=== PATIENT | female | born 1965 | race African-American/Black ===

== ENCOUNTER 2017-05-27 18:56 | Emergency (ER) | payer MEDICARE, MEDICAID ==
[~2017-05-27] VITALS: Ht 170.2 cm; Wt 86.0 kg
[~2017-05-27 18:56] MED LIST: ASPI-1160; ATEN-42; CINA60; INSULIN; NPH; OMEPRAZOLE DR; REN800; [UNRECOGNIZED DRUG - OTHER]; [UNRECOGNIZED DRUG - OTHER]
[2017-05-27 19:38] LABS: BASOPHILS % 0.8 % (0.0-2.0); EOSINOPHILS % 1.4 % (0.0-5.0); HEMATOCRIT. 33.5 % (36.0-48.0); HEMOGLOBIN. 11.1 g/dL (12.0-16.0); LYMPHOCYTES % 8.2 % (20.0-50.0); MEAN CORPUSCULAR HEMOGLOBIN 27.6 pg (28.0-32.0); MEAN CORPUSCULAR VOLUME 83.3 fL (81.0-99.0); MEAN PLATELET VOLUME 9.3 fl (7.4-10.4); MONOCYTES % 8.8 % (2.0-8.0); NEUTROPHILS % 80.8 % (40.0-76.0); PLATELET 226 x1000/uL (130-400); RED BLOOD CELL COUNT 4.02 mill/uL (4.2-5.4); RED CELL DISTRIBUTION WIDTH 15.8 % (11.6-14.6)
[2017-05-27 19:40] LABS: CHLORIDE 97 mEq/L (98-107)
[2017-05-27 19:41] LABS: INR 1.1
[2017-05-27 19:48] LABS: CARBON DIOXIDE 32 mEq/L (21-32)
[2017-05-27 20:01] LABS: TROPONIN I < 0.02 ng/mL (0.00-0.04)
[2017-05-27 20:21] LABS: CLARITY URINE CLOUDY (CLEAR); COLOR URINE YELLOW (YELLOW); GLUCOSE URINE TRACE (NEGATIVE); KETONES URINE NEGATIVE (NEGATIVE); LEUKOCYTE ESTERASE URINE 1+ (NEGATIVE); NITRITE URINE NEGATIVE (NEGATIVE); OCCULT BLOOD URINE 3+ (NEGATIVE); PH URINE >=9.0 (4.5-8.0); PROTEIN URINE 3+ (NEGATIVE); SPECIFIC GRAVITY URINE 1.013 (1.005-1.030); UROBILINOGEN URINE 0.2 E.U./dL (0.2-1.0)
[2017-05-27] MEDS ORDERED: SODIUM POLYSTYRENE SULFONATE 15 G/60 ML BOT PO NR (22:15)
[2017-05-27 23:15] VITALS: BP 174/89
== END 2017-05-28 00:12 | disposition home or self-care (01) ==
LOC: ER 18:56
DX: E87.5 Hyperkalemia (principal); R10.30 Lower abdominal pain, unspecified; N18.6 End stage renal disease; E11.22 Type 2 diabetes mellitus with diabetic chronic kidney disease; I12.0 Hypertensive chronic kidney disease with stage 5 chronic kidney disease or end stage renal disease; Z99.2 Dependence on renal dialysis; Z79.4 Long term (current) use of insulin; Z79.82 Long term (current) use of aspirin
CPT/HCPCS: 36415; 71010; 80053; 81001; 83690; 83880; 84484; 85025; 85610; 93005; 99285

== ENCOUNTER → 2020-06-03 | Outpatient (CLI) | payer MEDICARE, MEDICAID ==
[~2020-06-03] MED LIST changes: +ATOR20TA PO; +CALC0.5C10 PO; +FOLI1TAB63 PO; +INSNPH SUBCUT; +INSU100V3 SUBCUT; +SEVE800T8 PO
== END | disposition home or self-care (01) ==
LOC: LAB 14:18
PROVIDERS: ATTEND Podiatrist Foot & Ankle Surgery
DX: Z01.812 Encounter for preprocedural laboratory examination (principal); Z20.828 Contact with and (suspected) exposure to other viral communicable diseases
CPT/HCPCS: C9803; U0003

== ENCOUNTER 2020-06-06 06:05 | Day surgery (SDC) | payer MEDICARE, MEDICAID ==
[~2020-06-06] VITALS: Ht 172.7 cm; Wt 88.5 kg
[~2020-06-06 06:05] MED LIST changes: -ASPI-1160; -ATEN-42; -CINA60; -INSULIN; -NPH; -OMEPRAZOLE DR; -REN800; +SODIUM CHLORIDE 0.9% 1,000 ML IV SCH; -[UNRECOGNIZED DRUG - OTHER]; -[UNRECOGNIZED DRUG - OTHER]
[2020-06-06] MEDS ORDERED: LIDOCAINE HCL 1% 20ML VIAL (Pyxis) INJ ONE (07:00)
[2020-06-06] MEDS ORDERED: BUPIVACAINE HCL/PF 0.5% (5MG/ML) 10ML ONE (07:01)
[2020-06-06] MEDS ORDERED: BACITRACIN 50,000 UNITS/VIAL ONE (07:01)
[2020-06-06] MEDS ORDERED: PROPOFOL 10MG/ML 100ML 100 ML IV ONE (07:29)
[2020-06-06] MEDS ORDERED: SODIUM CHLORIDE 0.9% 1,000 ML IV ONE (08:08)
[2020-06-06] MEDS ORDERED: ONDANSETRON HCL 4MG/2ML INJ IV PRN (08:15)
[2020-06-06] MEDS ORDERED: HYDROMORPHONE HCL/PF 2MG/ML CPJ IV PRN (08:15)
== END 2020-06-06 13:00 | disposition home or self-care (01) ==
LOC: OR 06:05
PROVIDERS: ATTEND Podiatrist Foot & Ankle Surgery
DX: M86.8X7 Other osteomyelitis, ankle and foot (principal); I13.11 Hypertensive heart and chronic kidney disease without heart failure, with stage 5 chronic kidney disease, or end stage renal disease; E11.22 Type 2 diabetes mellitus with diabetic chronic kidney disease; N18.6 End stage renal disease; E66.01 Morbid (severe) obesity due to excess calories; E78.00 Pure hypercholesterolemia, unspecified; E83.39 Other disorders of phosphorus metabolism; N25.81 Secondary hyperparathyroidism of renal origin; Z79.4 Long term (current) use of insulin; Z79.899 Other long term (current) drug therapy; Z83.3 Family history of diabetes mellitus; Z98.84 Bariatric surgery status; Z99.2 Dependence on renal dialysis; Z91.013 Allergy to seafood; Z88.8 Allergy status to other drugs, medicaments and biological substances; Z98.890 Other specified postprocedural states
CPT/HCPCS: 11044; 36415; 80048; 82962; 87070; 87075; 87205; 93005; J2704; J3490; J7040